=== PATIENT | female | born 1940 | race Caucasian/White ===

== ENCOUNTER 2021-07-09 07:03 | Inpatient (IN) | payer MEDICARE ==
[~2021-07-09] VITALS: Ht 162.6 cm; Wt 77.7 kg
[2021-07-09] VITALS (14 sets, daily range): BP systolic 121–169; BP diastolic 63–84
[2021-07-09 07:48] LABS: BASO % 1 % (0-3); EOS # 0.1 x10^3/uL (0.0-0.7); EOS % 1 % (0-3); HEMOGLOBIN 14.7 g/dL (12.0-15.5); LYMPH % 21 % (24-48); MEAN CORPUSCULAR HEMOGLOBIN 28 pg (25-35); MEAN CORPUSCULAR HGB CONC 32 g/dL (31-37); MEAN CORPUSCULAR VOLUME 87 fL (79-100); MONO # 1.1 x10^3/uL (0.0-1.1); MONO % 11 % (0-9); NEUT # 6.2 x10^3/uL (1.8-7.7); NEUT % 66 % (31-73); PLATELET COUNT 263 x10^3/uL (140-400); RED BLOOD COUNT 5.27 x10^6/uL (3.50-5.40); WHITE BLOOD COUNT 9.4 x10^3/uL (4.0-11.0)
[2021-07-09 07:52] LABS: CALCIUM 8.7 mg/dL (8.5-10.1); CREATININE 0.8 mg/dL (0.6-1.0); GFR 68.5; POTASSIUM 3.9 mmol/L (3.5-5.1)
[2021-07-09] MEDS ORDERED: CALC-712 PO (07:58)
[2021-07-09] MEDS ORDERED: PRAV80TA2 PO (08:04)
[2021-07-09] MEDS ORDERED: OMEP40CA7 PO (08:04)
[2021-07-09] MEDS ORDERED: MULT-245 PO (08:04)
[2021-07-09] MEDS ORDERED: CALC-161 PO (08:04)
[2021-07-09] MEDS ORDERED: LISI10TA16 PO (08:04)
[2021-07-09] MEDS ORDERED: GLUC-11 PO (08:04)
[2021-07-09] MEDS ORDERED: NIAC500C6 PO (08:04)
[2021-07-09] MEDS ORDERED: FERR325T14 PO (08:04)
[2021-07-09] MEDS ORDERED: POLY2500 PO (08:04)
[2021-07-09] MEDS ORDERED: LIDOCAINE WITH 8.4% SOD BICARB 3 ML DISP.SYRIN. ONE (08:07)
[2021-07-09 08:08] LABS: PROTHROMBIN TIME PATIENT 12.2 SEC (11.7-14.0)
[2021-07-09] MEDS ORDERED: IODIXANOL 320 MG/ML 50ML VIAL. ONE (08:08)
[2021-07-09] MEDS ORDERED: ceFAZolin SODIUM IV Push 1 GM VIAL. IVP ONE ×2 (09:02→09:45)
[2021-07-09] MEDS ORDERED: MIDAZOLAM HCL/PF 2 MG/2 ML VIAL. ONE (09:03)
[2021-07-09] MEDS ORDERED: fentaNYL PF VIAL 100 MCG/2 ML VIAL ONE (09:03)
[2021-07-09] MEDS ORDERED: IODIXANOL 320 MG/ML 50ML VIAL. IV ONE (09:45)
[2021-07-09] MEDS ORDERED: LIDOCAINE WITH 8.4% SOD BICARB 3 ML DISP.SYRIN. IJ ONE (09:45)
[2021-07-09] MEDS ORDERED: fentaNYL PF VIAL 100 MCG/2 ML VIAL IV ONE (09:45)
[2021-07-09] MEDS ORDERED: MIDAZOLAM HCL/PF 2 MG/2 ML VIAL. IV ONE (09:45)
--- NOTE | 2021-07-09 15:05 | NUR ---
Spoke with Dr. Vasquez about pt transferring to room 552 and that care has been transferred to [facility]. Discussed with Dr. Vasquez that Mrs. Monroe is having pain at a 5/10. He explained that he would be seeing the patient and would address the pain issue.
--- NOTE | 2021-07-09 15:33 | PDOC1 ---
History and Physical Date of Service: DOS: DATE: 07/09/21 TIME: 15:33 Chief Complaint: Chief Complain: Urinary obstruction History of Present Illness: HPI: 81-year-old female who presents to the IR suite for nephroureteral stent placement with nephrostomy. We are asked by interventional radiologist to observe the patient overnight. Patient seen at bedside and is stable. Pain is well tolerated. Nephrostomy tube draining well with pink clear urine. Currently denies fevers, chest pain, abdominal pain, dysuria, diarrhea or weakness. Past Medical/Surgical History: PMH/PSH: History of hypertension, history of GERD bladder cancer diagnosed 06/04/2021, removed 06/04/2021 plan for chemoradiation in 1 week, bilateral knee replacement Allergies: Allergies: Coded Allergies: phenazopyridine (Verified Allergy, Severe, Swelling, 07/09/21) prochlorperazine (Verified Allergy, Severe, Swelling, 07/09/21) Family History: Family History: Reviewed with no relevant findings in the chart Social History: Social History: Currently denies alcohol, tobacco or drug abuse Current Medications: Current Medications Current Medications Lidocaine HCl (Buffered Lidocaine 1%) 3 ml STK-MED ONCE .ROUTE ; Start 07/09/21 at 08:07; Stop 07/09/21 at 08:08; Status DC Iodixanol (Visipaque 320) 50 ml STK-MED ONCE .ROUTE ; Start 07/09/21 at 08:08; Stop 07/09/21 at 08:08; Status DC Heparin Sodium/ Sodium Chloride 500 ml @ As Directed STK-MED ONCE .ROUTE ; Start 07/09/21 at 08:28; Stop 07/09/21 at 08:28; Status DC Cefazolin Sodium (Ancef) 1 gm STK-MED ONCE IVP ; Start 07/09/21 at 09:02; Stop 07/09/21 at 09:03; Status DC Midazolam HCl (Versed) 2 mg STK-MED ONCE .ROUTE ; Start 07/09/21 at 09:03; Stop 07/09/21 at 09:03; Status DC Fentanyl Citrate (Fentanyl 2ml Vial) 100 mcg STK-MED ONCE .ROUTE ; Start 07/09/21 at 09:03; Stop 07/09/21 at 09:03; Status DC Heparin Sodium/ Sodium Chloride (HEPARIN for ARTERIAL LINE FLUSH) 1,000 unit 1X ONCE IART Last administered on 07/09/21at 09:45; Start 07/09/21 at 09:45; Stop 07/09/21 at 09:46; Status DC Lidocaine HCl (Buffered Lidocaine 1%) 3 ml 1X ONCE IJ Last administered on 07/09/21at 09:51; Start 07/09/21 at 09:45; Stop 07/09/21 at 09:46; Status DC Fentanyl Citrate (Fentanyl 2ml Vial) 100 mcg 1X ONCE IV Last administered on 07/09/21at 09:53; Start 07/09/21 at 09:45; Stop 07/09/21 at 09:46; Status DC Cefazolin Sodium (Ancef) 1 gm 1X ONCE IVP Last administered on 07/09/21at 09:52; Start 07/09/21 at 09:45; Stop 07/09/21 at 09:46; Status DC Iodixanol (Visipaque 320) 50 ml 1X ONCE IV Last administered on 07/09/21at 09:52; Start 07/09/21 at 09:45; Stop 07/09/21 at 09:46; Status DC Midazolam HCl (Versed) 2 mg 1X ONCE IV Last administered on 07/09/21at 09:53; Start 07/09/21 at 09:45; Stop 07/09/21 at 09:46; Status DC Lisinopril (Prinivil) 10 mg DAILY PO ; Start 07/09/21 at 16:00 Pantoprazole Sodium (Protonix) 40 mg DAILYAC PO ; Start 07/09/21 at 16:30 Active Scripts Active Reported Omeprazole 40 Mg Capsule. 1 Cap PO DAILY Lisinopril 10 Mg Tablet 1 Tab PO DAILY Pravastatin Sodium 80 Mg Tablet 1 Tab PO DAILY Polyethylene Glycol 3350 2,500 Gm Powder 17 Gm PO DAILY Ferrous Sulfate 325 Mg Tablet 1 Tab PO DAILY Niacin 500 Mg Capsule (Niacin (Inositol Niacinate)) 500 Mg Capsule 2 Cap PO DAILY 30 Days Cidaflex Tablet (Glucosamine Hcl/Chondr Willis A Na) 1 Each Tablet 1 Each PO DAILY Calcium 500+D Tablet Chew (Calcium Carbonate/Vitamin D3) 1 Each Tab.chew 1 Each PO DAILY Multi Vitamin Daily (Multivitamin) 1 Each Tablet 1 Tab PO DAILY 30 Days ROS: Review of Systems Review of System REVIEW OF SYSTEMS: GENERAL: Denies weakness SKIN: No bruising, hair changes or rashes. EYES: No blurred, double or loss of vision. NOSE AND THROAT: No history of nosebleeds, hoarseness or sore throat. HEART: No history of palpitations, chest pain or shortness of breath on exertion. LUNGS: Denies cough, hemoptysis, wheezing or shortness of breath. GASTROINTESTINAL: Denies changes in appetite, nausea, vomiting, diarrhea or constipation. GENITOURINARY: No history of frequency, urgency, hesitancy or nocturia. NEUROLOGIC: Denies history of numbness, tingling, or tremor. PSYCHIATRIC: No history of panic, anxiety or depression. ENDOCRINE: No history of heat or cold intolerance, polyuria or polydipsia. EXTREMITIES: Denies joint pain, pain on walking or stiffness. Physical Exam: Vital Signs: Vital Signs Date Time Temp Pulse Resp B/P (MAP) Pulse Ox O2 Delivery O2 Flow Rate FiO2 07/09/21 15:12 98.4 73 18 150/68 (95) 93 Room Air 98.4 07/09/21 10:02 2.0 Physcial Exam: General: Well developed, well nourished, no acute distress, well appearing HEENT: Pupils equally round and reactive to light, EOMI, no discharge, normal conjunctiva Neck: Supple, no nuchal rigidity, no JVD, trachea midline, no tenderness Cardiac: RRR, no murmurs, no gallops, no rubs Chest/Lungs: CTAB, no wheeze, no rhonchi, no crackles Abdomen: soft, non-distended, no guarding, no peritoneal signs, non-tender Back: Nephrostomy tube well intact. No leaks or drainage. Draining pink clear urine in the bag Extremities: no edema, pulses intact, non-tender,capillary refill <3 sec bilateral upper and lower extremities, Neuro: Alert and oriented x 4, no focal deficits, normal speech Labs: Labs: Laboratory Tests Test 07/09/21 07:28 White Blood Count 9.4 x10^3/uL (4.0-11.0) Red Blood Count 5.27 x10^6/uL (3.50-5.40) Hemoglobin 14.7 g/dL (12.0-15.5) Hematocrit 46.0 % (36.0-47.0) Mean Corpuscular Volume 87 fL (79-100) Mean Corpuscular Hemoglobin 28 pg (25-35) Mean Corpuscular Hemoglobin Concent 32 g/dL (31-37) Red Cell Distribution Width 13.0 % (11.5-14.5) Platelet Count 263 x10^3/uL (140-400) Neutrophils (%) (Auto) 66 % (31-73) Lymphocytes (%) (Auto) 21 % (24-48) Monocytes (%) (Auto) 11 % (0-9) Eosinophils (%) (Auto) 1 % (0-3) Basophils (%) (Auto) 1 % (0-3) Neutrophils # (Auto) 6.2 x10^3/uL (1.8-7.7) Lymphocytes # (Auto) 2.0 x10^3/uL (1.0-4.8) Monocytes # (Auto) 1.1 x10^3/uL (0.0-1.1) Eosinophils # (Auto) 0.1 x10^3/uL (0.0-0.7) Basophils # (Auto) 0.0 x10^3/uL (0.0-0.2) Prothrombin Time 12.2 SEC (11.7-14.0) Prothromb Time International Ratio 0.9 (0.8-1.1) Sodium Level 142 mmol/L (136-145) Potassium Level 3.9 mmol/L (3.5-5.1) Chloride Level 102 mmol/L (98-107) Carbon Dioxide Level 26 mmol/L (21-32) Anion Gap 14 (6-14) Blood Urea Nitrogen 18 mg/dL (7-20) Creatinine 0.8 mg/dL (0.6-1.0) Estimated GFR (Cockcroft-Gault) 68.5 Glucose Level 96 mg/dL (70-99) Calcium Level 8.7 mg/dL (8.5-10.1) Laboratory Tests Test 07/09/21 07:28 White Blood Count 9.4 x10^3/uL (4.0-11.0) Red Blood Count 5.27 x10^6/uL (3.50-5.40) Hemoglobin 14.7 g/dL (12.0-15.5) Hematocrit 46.0 % (36.0-47.0) Mean Corpuscular Volume 87 fL (79-100) Mean Corpuscular Hemoglobin 28 pg (25-35) Mean Corpuscular Hemoglobin Concent 32 g/dL (31-37) Red Cell Distribution Width 13.0 % (11.5-14.5) Platelet Count 263 x10^3/uL (140-400) Neutrophils (%) (Auto) 66 % (31-73) Lymphocytes (%) (Auto) 21 % (24-48) Monocytes (%) (Auto) 11 % (0-9) Eosinophils (%) (Auto) 1 % (0-3) Basophils (%) (Auto) 1 % (0-3) Neutrophils # (Auto) 6.2 x10^3/uL (1.8-7.7) Lymphocytes # (Auto) 2.0 x10^3/uL (1.0-4.8) Monocytes # (Auto) 1.1 x10^3/uL (0.0-1.1) Eosinophils # (Auto) 0.1 x10^3/uL (0.0-0.7) Basophils # (Auto) 0.0 x10^3/uL (0.0-0.2) Prothrombin Time 12.2 SEC (11.7-14.0) Prothromb Time International Ratio 0.9 (0.8-1.1) Sodium Level 142 mmol/L (136-145) Potassium Level 3.9 mmol/L (3.5-5.1) Chloride Level 102 mmol/L (98-107) Carbon Dioxide Level 26 mmol/L (21-32) Anion Gap 14 (6-14) Blood Urea Nitrogen 18 mg/dL (7-20) Creatinine 0.8 mg/dL (0.6-1.0) Estimated GFR (Cockcroft-Gault) 68.5 Glucose Level 96 mg/dL (70-99) Calcium Level 8.7 mg/dL (8.5-10.1) Images: Images No recent images to review Assessment/Plan Assessment/Plan Status post nephrostomy tube placement for obstructive uropathy secondary to bladder cancer History of bladder cancer Admit to hospitalist service for further management Urology consult PO and IV pain control Labs in the morning Strict I/O Urology will plan for outpatient stent replacement. Okay for discharge from urology standpoint. Justifications for Admission Other Justification MELODIE NAVAS MD Jul 09, 2021 15:33
--- NOTE | 2021-07-09 15:38 | PDOC2 ---
SRAVAN REYNAGA 07/09/21 1538: UROLOGY CONSULT DOS: DATE: 07/09/21 TIME: 15:31 Reason for Consult: bladder cancer 81F admitted to the hospital following a right sided nephroureteral stent placement by interventional radiology. This is a patient of Dr. Rose. Patient has a known history of bladder cancer. Patient had a cystolitholopaxy 06/04/2021 and TURBT. 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 There was no evidence of metastatic disease on CT scan. Patient has opted to not pursue cystectomy and would rather proceed with chemotherapy and radiation options. She does have bilateral hydronephrosis on recent CT imaging. Cystoscopy and bilateral ureteral stent placement was attempted outpatient. Patient was able to have left-sided indwelling ureteral stent placed by Dr. Rose, but due to the mass location, was not able to place the right ureteral stent. Patient that had interventional radiology place the right nephroureteral stent this morning at [facility]. Patient was admitted for monitoring. She is having mild right-sided flank pain as well as good urine output. ROS Constitutional: Denies fevers, chills, weakness Cardiovascular: Denies chest pain, palpitations Respiratory: Denies shortness of breath, wheezing, dyspnea on exertion GI: Denies abdominal pain, nausea, vomiting : Denies dysuria, frequency, urgency, hematuria, urinary retention, +flank pain Skin: Denies rash, bruising Musculoskeletal: Denies extremity pain, extremity edema Psychiatric: Denies stress, anxiety Current Medications Current Medications Lidocaine HCl (Buffered Lidocaine 1%) 3 ml STK-MED ONCE .ROUTE ; Start 07/09/21 at 08:07; Stop 07/09/21 at 08:08; Status DC Iodixanol (Visipaque 320) 50 ml STK-MED ONCE .ROUTE ; Start 07/09/21 at 08:08; Stop 07/09/21 at 08:08; Status DC Heparin Sodium/ Sodium Chloride 500 ml @ As Directed STK-MED ONCE .ROUTE ; Start 07/09/21 at 08:28; Stop 07/09/21 at 08:28; Status DC Cefazolin Sodium (Ancef) 1 gm STK-MED ONCE IVP ; Start 07/09/21 at 09:02; Stop 07/09/21 at 09:03; Status DC Midazolam HCl (Versed) 2 mg STK-MED ONCE .ROUTE ; Start 07/09/21 at 09:03; Stop 07/09/21 at 09:03; Status DC Fentanyl Citrate (Fentanyl 2ml Vial) 100 mcg STK-MED ONCE .ROUTE ; Start 07/09/21 at 09:03; Stop 07/09/21 at 09:03; Status DC Heparin Sodium/ Sodium Chloride (HEPARIN for ARTERIAL LINE FLUSH) 1,000 unit 1X ONCE IART Last administered on 07/09/21at 09:45; Start 07/09/21 at 09:45; Stop 07/09/21 at 09:46; Status DC Lidocaine HCl (Buffered Lidocaine 1%) 3 ml 1X ONCE IJ Last administered on 07/09/21at 09:51; Start 07/09/21 at 09:45; Stop 07/09/21 at 09:46; Status DC Fentanyl Citrate (Fentanyl 2ml Vial) 100 mcg 1X ONCE IV Last administered on 07/09/21at 09:53; Start 07/09/21 at 09:45; Stop 07/09/21 at 09:46; Status DC Cefazolin Sodium (Ancef) 1 gm 1X ONCE IVP Last administered on 07/09/21at 09:52; Start 07/09/21 at 09:45; Stop 07/09/21 at 09:46; Status DC Iodixanol (Visipaque 320) 50 ml 1X ONCE IV Last administered on 07/09/21at 09:52; Start 07/09/21 at 09:45; Stop 07/09/21 at 09:46; Status DC Midazolam HCl (Versed) 2 mg 1X ONCE IV Last administered on 07/09/21at 09:53; Start 07/09/21 at 09:45; Stop 07/09/21 at 09:46; Status DC Lisinopril (Prinivil) 10 mg DAILY PO ; Start 07/09/21 at 16:00 Pantoprazole Sodium (Protonix) 40 mg DAILYAC PO ; Start 07/09/21 at 16:30 Active Scripts Active Reported Omeprazole 40 Mg Capsule.dr 1 Cap PO DAILY Lisinopril 10 Mg Tablet 1 Tab PO DAILY Pravastatin Sodium 80 Mg Tablet 1 Tab PO DAILY Polyethylene Glycol 3350 2,500 Gm Powder 17 Gm PO DAILY Ferrous Sulfate 325 Mg Tablet 1 Tab PO DAILY Niacin 500 Mg Capsule (Niacin (Inositol Niacinate)) 500 Mg Capsule 2 Cap PO DAILY 30 Days Cidaflex Tablet (Glucosamine Hcl/Chondr Willis A Na) 1 Each Tablet 1 Each PO DAILY Calcium 500+D Tablet Chew (Calcium Carbonate/Vitamin D3) 1 Each Tab.chew 1 Each PO DAILY Multi Vitamin Daily (Multivitamin) 1 Each Tablet 1 Tab PO DAILY 30 Days Allergies: Coded Allergies: phenazopyridine (Verified Allergy, Severe, Swelling, 07/09/21) prochlorperazine (Verified Allergy, Severe, Swelling, 07/09/21) Physical Examination GENERAL: awake, alert, oriented SKIN: warm, dry RESPIRATORY: Aerating well, symmetrical expansion GI: Soft, nontender, no guarding, no rebound : Normal anatomy, no lesions, mild right-sided flank pain, right-sided nephroureteral stent draining light red urine MUSCULOSKELETAL: Moves all extremities, no edema NEURO: No gross abnormalities PSYCHIATRIC: Normal mood, normal affect, pleasant VITALS Vital Signs Date Time Temp Pulse Resp B/P (MAP) Pulse Ox O2 Delivery O2 Flow Rate FiO2 07/09/21 15:12 98.4 73 18 150/68 (95) 93 Room Air 98.4 07/09/21 10:02 2.0 Labs Laboratory Tests Test 07/09/21 07:28 White Blood Count 9.4 x10^3/uL (4.0-11.0) Red Blood Count 5.27 x10^6/uL (3.50-5.40) Hemoglobin 14.7 g/dL (12.0-15.5) Hematocrit 46.0 % (36.0-47.0) Mean Corpuscular Volume 87 fL (79-100) Mean Corpuscular Hemoglobin 28 pg (25-35) Mean Corpuscular Hemoglobin Concent 32 g/dL (31-37) Red Cell Distribution Width 13.0 % (11.5-14.5) Platelet Count 263 x10^3/uL (140-400) Neutrophils (%) (Auto) 66 % (31-73) Lymphocytes (%) (Auto) 21 % (24-48) Monocytes (%) (Auto) 11 % (0-9) Eosinophils (%) (Auto) 1 % (0-3) Basophils (%) (Auto) 1 % (0-3) Neutrophils # (Auto) 6.2 x10^3/uL (1.8-7.7) Lymphocytes # (Auto) 2.0 x10^3/uL (1.0-4.8) Monocytes # (Auto) 1.1 x10^3/uL (0.0-1.1) Eosinophils # (Auto) 0.1 x10^3/uL (0.0-0.7) Basophils # (Auto) 0.0 x10^3/uL (0.0-0.2) Prothrombin Time 12.2 SEC (11.7-14.0) Prothromb Time International Ratio 0.9 (0.8-1.1) Sodium Level 142 mmol/L (136-145) Potassium Level 3.9 mmol/L (3.5-5.1) Chloride Level 102 mmol/L (98-107) Carbon Dioxide Level 26 mmol/L (21-32) Anion Gap 14 (6-14) Blood Urea Nitrogen 18 mg/dL (7-20) Creatinine 0.8 mg/dL (0.6-1.0) Estimated GFR (Cockcroft-Gault) 68.5 Glucose Level 96 mg/dL (70-99) Calcium Level 8.7 mg/dL (8.5-10.1) Laboratory Tests Test 07/09/21 07:28 White Blood Count 9.4 x10^3/uL (4.0-11.0) Red Blood Count 5.27 x10^6/uL (3.50-5.40) Hemoglobin 14.7 g/dL (12.0-15.5) Hematocrit 46.0 % (36.0-47.0) Mean Corpuscular Volume 87 fL (79-100) Mean Corpuscular Hemoglobin 28 pg (25-35) Mean Corpuscular Hemoglobin Concent 32 g/dL (31-37) Red Cell Distribution Width 13.0 % (11.5-14.5) Platelet Count 263 x10^3/uL (140-400) Neutrophils (%) (Auto) 66 % (31-73) Lymphocytes (%) (Auto) 21 % (24-48) Monocytes (%) (Auto) 11 % (0-9) Eosinophils (%) (Auto) 1 % (0-3) Basophils (%) (Auto) 1 % (0-3) Neutrophils # (Auto) 6.2 x10^3/uL (1.8-7.7) Lymphocytes # (Auto) 2.0 x10^3/uL (1.0-4.8) Monocytes # (Auto) 1.1 x10^3/uL (0.0-1.1) Eosinophils # (Auto) 0.1 x10^3/uL (0.0-0.7) Basophils # (Auto) 0.0 x10^3/uL (0.0-0.2) Prothrombin Time 12.2 SEC (11.7-14.0) Prothromb Time International Ratio 0.9 (0.8-1.1) Sodium Level 142 mmol/L (136-145) Potassium Level 3.9 mmol/L (3.5-5.1) Chloride Level 102 mmol/L (98-107) Carbon Dioxide Level 26 mmol/L (21-32) Anion Gap 14 (6-14) Blood Urea Nitrogen 18 mg/dL (7-20) Creatinine 0.8 mg/dL (0.6-1.0) Estimated GFR (Cockcroft-Gault) 68.5 Glucose Level 96 mg/dL (70-99) Calcium Level 8.7 mg/dL (8.5-10.1) Assessment/Plan --Bladder cancer Patient is going to follow-up outpatient for chemotherapy and radiation. She did not want to do any invasive surgical management / cystectomy. Patient has indwelling left-sided ureteral stent placed by Dr. Rose outpatient. IR was able to place right-sided nephroureteral stent this morning. She is having good urine output. Pain is controlled, but would like pain medication for home should the pain increase. Patient has follow-up appointment on 07/26. We will plan for chronic stent management on an outpatient basis for management of bilateral hydronephrosis. Patient is cleared to discharge from urology standpoint. Discussed with KYLE Bueno MD 07/18/21 1348: SRAVAN REYNAGA Jul 09, 2021 15:38 KYLE ROSE MD Jul 18, 2021 13:48
[2021-07-09] MEDS ORDERED: DEXTROSE 50% 25 GM / 50ML DISP.SYRIN. IV PRN (15:45)
[2021-07-09] MEDS ORDERED: DOCUSATE SODIUM 100 MG CAPSULE. PO PRN (15:45)
[2021-07-09] MEDS ORDERED: MORPHINE SULFATE 2 MG/ML INJ. IV PRN (15:45)
[2021-07-09] MEDS ORDERED: MORPHINE SULFATE 2 MG/ML INJ. IVP PRN (15:45)
[2021-07-09] MEDS ORDERED: diphenhydrAMINE 50 MG/ML VIAL IVP PRN (15:45)
[2021-07-09] MEDS ORDERED: diphenhydrAMINE HCL 25 MG CAPSULE PO PRN ×2 (15:45)
[2021-07-09] MEDS ORDERED: oxyCODONE/APAP 5/325 1 TAB TABLET PO PRN (15:45)
[2021-07-09] MEDS ORDERED: PROCHLORPERAZINE 10 MG/2 ML VIAL. IV PRN (15:45)
[2021-07-09] MEDS ORDERED: SENNOSIDES 8.6 MG TABLET PO PRN (15:45)
[2021-07-09] MEDS ORDERED: LORazepam 0.5 MG TABLET PO PRN (15:45)
[2021-07-09] MEDS ORDERED: ONDANSETRON PF 4 MG/2 ML VIAL. IVP PRN (15:45)
[2021-07-09] MEDS ORDERED: ZOLPIDEM 5 MG TABLET. PO PRN (15:45)
[2021-07-09] MEDS ORDERED: ACETAMINOPHEN 325 MG TABLET. PO PRN (15:45)
[2021-07-09] MEDS ORDERED: LISINOPRIL 10 MG TABLET PO SCH (16:00)
[2021-07-09] MEDS ORDERED: PANTOPRAZOLE 40 MG TABLET.DR. PO SCH (16:30)
[2021-07-09] MEDS ORDERED: OXYC1TAB15 PO (16:54)
[2021-07-09] MEDS ORDERED: ACET500T68 PO (16:58)
--- NOTE | 2021-07-09 17:00 | DISCH ---
DISCHARGE INSTRUCTIONS Condition on Discharge Condition on Discharge: Stable Activity After Discharge Activity Instructions for Disc: Activity as tolerated Exercise Instruction after Dis: Walk 30 min, 3 x per week Driving Instructions after Dis: Do not drive today Diet after Discharge Diet after Discharge: Cardiac Follow-Up Follow up with: urology on 07/26 Follow Up With: Oncologist as scheduled Treatment/Equipment after DC Comment: mid back MELODIE NAVAS MD Jul 09, 2021 17:00
--- NOTE | 2021-07-09 17:19 | NUR ---
after speaking with patient, Coral from Urology and Dr Vasquez, it was decided that the pt was to be discharged home with self care. the pt was on the floor in her room for about 2 hours. We took out her IV and wheeled her down to the outpatient area for her son to drive her home. Kory Dotson RN
--- NOTE | 2021-07-11 14:13 | RAD ---
July 09, 2021 07/11/2021 2:07 PM PROCEDURE: Placement of a a right-sided nephroureteral catheter Indication: Obstructed distal right ureter. Inability to identify the ureteral orifice of the bladder . Obstruction Consent: The procedure was explained in its entirety to the patient or the patients desig nated teles[employer]ices representative by a member of the treatment team, including a discussion of the risks, benefits and commonly accepted alternatives to the procedure, as well as the expected consequences of no ther apy whatsoever. Discussion of the risks included, but was not limited to, those that are most frequ ent and those that are rare but possibly severe or life-threatening, as well as the possibility of un foreseen complications. Sterility: The patient was prepped and draped using maximum sterile technique, including the use of: Current guideline approved cutaneous antisepsis, a large sterile sheet to establish a sterile field. Additionally the washer operator wore a hat, mask, sterile gloves, a sterile gown during the procedure as we ll as practiced acceptable hand hygiene prior to placing the line. Sedation: The procedure was performed under conscious sedation including continuous cardiopulmonary m onitoring via a dedicated sedation nurse.[id number] sedation time: 45 minutes Fluoroscopy time: 13.8 minutes Dose Area Product: 27 Lazar centimeter squared Procedural details: The patient was placed in the prone position. The right flank was prepped and chantal ped as described. Ultrasound demonstrates moderate right hydronephrosis. 1% lidocaine was administere d for local anesthesia. Under direct ultrasound guidance a posterior calyx was accessed with a 22-gau ge needle. Contrast was administered to delineate the renal collecting system. A guidewire was manipu lated into the bladder. Over this wire a nephroureteral catheter was advanced such that the distal ti p was positioned in the bladder, the proximal pigtail loop positioned in the renal pelvis. The cathet er was connected to gravity drainage. Catheter secured in place. Sterile dressings were applied. No i mmediate complications were identified. Impression: Placement of a right-sided nephroureteral catheter. Patient will follow-up with urology, with likely eventual replacement of this catheter with either an antegrade or retrograde double-J ure teral stent. Electronically signed by: Mason Rodas MD (07/11/2021 2:10 PM) [id number]
--- NOTE | 2021-07-17 16:26 | PDOC3 ---
[facility]-Discharge Summary Date of Admission: Date of Admission: Jul 09, 2021 Date of Discharge: Date of Discharge: Jul 09, 2021 Discharge Diagnosis: Discharge Diagnosis: Status post nephrostomy tube placement for obstructive uropathy secondary to bladder cancer History of bladder cancer Hospital Course: Hospital Course: 81-year-old female who presents to the IR suite for nephroureteral stent placement with nephrostomy. We are asked by interventional radiologist to observe the patient overnight. Patient seen at bedside and is stable. Pain is well tolerated. Nephrostomy tube draining well with pink clear urine. Currently denies fevers, chest pain, abdominal pain, dysuria, diarrhea or weakness. Admit to hospitalist service for further management Urology consult PO and IV pain control Labs in the morning Strict I/O Urology will plan for outpatient stent replacement. Okay for discharge from urology standpoint. Disposition: Disposition/Orders: D/C to Home Activity: Activity: Resume previous activity Diet: Diet: Regular Medications: Home Meds Active Scripts Acetaminophen (ACETAMINOPHEN) 500 Mg Tablet, 1 TAB PO PRN Q6HRS PRN for pain or fever for 15 Days, #60 TAB 0 Refills Prov:MELODIE NAVAS MD 07/09/21 Reported Medications Omeprazole (OMEPRAZOLE) 40 Mg Capsule.dr, 1 CAP PO DAILY for rx, #30 CAP 3 Refills 07/09/21 Lisinopril (LISINOPRIL) 10 Mg Tablet, 1 TAB PO DAILY for rx, #30 TAB 5 Refills 07/09/21 Pravastatin Sodium (PRAVASTATIN SODIUM) 80 Mg Tablet, 1 TAB PO DAILY for rx, #30 TAB 5 Refills 07/09/21 Polyethylene Glycol 3350 (POLYETHYLENE GLYCOL 3350) 2,500 Gm Powder, 17 GM PO DAILY for constipation, #255 GM 0 Refills 07/09/21 Ferrous Sulfate (FERROUS SULFATE) 325 Mg Tablet, 1 TAB PO DAILY for rx, #30 TAB 3 Refills 07/09/21 Niacin (Inositol Niacinate) (NIACIN 500 MG CAPSULE) 500 Mg Capsule, 2 CAP PO DAILY for rx for 30 Days, #60 CAP 0 Refills 07/09/21 Glucosamine Hcl/Chondr Willis A Na (CIDAFLEX TABLET) 1 Each Tablet, 1 EACH PO DAILY for rx, TAB 07/09/21 Calcium Carbonate/Vitamin D3 (Calcium 500+D Tablet Chew) 1 Each Tab.chew, 1 EACH PO DAILY for rx, TAB.CHEW 07/09/21 Multivitamin (MULTI VITAMIN DAILY) 1 Each Tablet, 1 TAB PO DAILY for rx for 30 Days, #30 TAB 0 Refills 07/09/21 Scheduled Calcium Carbonate/Vitamin D3 (Calcium 500+D Tablet Chew), 1 EACH PO DAILY, (Reported) Ferrous Sulfate (Ferrous Sulfate), 1 TAB PO DAILY, (Reported) Glucosamine Hcl/Chondr Willis A Na (Cidaflex Tablet), 1 EACH PO DAILY, (Reported) Lisinopril (Lisinopril), 1 TAB PO DAILY, (Reported) Multivitamin (Multi Vitamin Daily), 1 TAB PO DAILY, (Reported) Niacin (Inositol Niacinate) (Niacin 500 Mg Capsule), 2 CAP PO DAILY, (Reported) Omeprazole (Omeprazole), 1 CAP PO DAILY, (Reported) Polyethylene Glycol 3350 (Polyethylene Glycol 3350), 17 GM PO DAILY, (Reported) Pravastatin Sodium (Pravastatin Sodium), 1 TAB PO DAILY, (Reported) Scheduled PRN Acetaminophen (Acetaminophen), 1 TAB PO PRN Q6HRS PRN for pain or fever Total Time: Total Time: Total time spent was 32 minutes in preparing scripts, discharge planning with SWI and RN and preparing this discharge summary Patient seen and examined on day of discharge. No acute abnormal findings. Justicifation of Admission Dx: Justifications for Admission: Justification of Admission Dx: Yes Comments: Status post nephrostomy tube placement MELODIE NAVAS MD Jul 17, 2021 16:26
== END 2021-07-09 18:00 | disposition home or self-care (01) | DRG 694 ==
LOC: INTRAD 07:03 → 5 SOUTH 07:36
PROVIDERS: ADMIT Internal Medicine; ATTEND Urology
PROC: 0T9B30Z Drainage of Bladder with Drainage Device, Percutaneous Approach (ICD-10-PCS; principal; 2021-07-09)
DX: N13.2 Hydronephrosis with renal and ureteral calculous obstruction (principal); C67.9 Malignant neoplasm of bladder, unspecified; I10 Essential (primary) hypertension; Z96.653 Presence of artificial knee joint, bilateral; K21.9 Gastro-esophageal reflux disease without esophagitis; Z51.81 Encounter for therapeutic drug level monitoring; Z85.51 Personal history of malignant neoplasm of bladder; Z93.6 Other artificial openings of urinary tract status
CPT/HCPCS: 36415; 50433; 80048; 85025; 85610; 99152; 99153; J0690; J1644; J2250; J3010; J3490; Q9967; G0378